=== PATIENT | female | born 1985 | race Caucasian/White ===

== ENCOUNTER 2017-11-19 15:07 | Emergency (ER) | payer OTHER ==
[~2017-11-19] VITALS: Ht 157.5 cm; Wt 83.5 kg
[2017-11-19 15:12] VITALS: Ht 157.5 cm; Wt 83.5 kg
[2017-11-19 16:47] LABS: CARBON DIOXIDE 26.5 mmol/L (21-32); CHLORIDE SERUM 104 mmol/L (98-107); CREATININE SERUM 0.7 mg/dL (0.6-1.0); GFR1 > 60 mL/min; GLUCOSE SERUM 92 mg/dL (74-106); SODIUM SERUM 141 mmol/L (136-145)
[2017-11-19 16:50] LABS: BASOPHIL % 0.5 % (0-2); PLATELET COUNT 334 x10^3mcL (130-400); RED CELL DISTRIBUTION WIDTH 12.7 % (11.5-14.5)
[2017-11-19 17:02] LABS: FREE T4 1.03 ng/dL (0.76-1.46)
[2017-11-19 17:14] VITALS: BP 137/65
== END 2017-11-19 18:50 | disposition home or self-care (01) ==
LOC: ED 15:07
PROVIDERS: Emergency Medicine
DX: J45.909 Unspecified asthma, uncomplicated (principal); E03.9 Hypothyroidism, unspecified
CPT/HCPCS: 36415; 84439; Q0092

== ENCOUNTER 2017-11-29 10:50 | Emergency (ER) | payer OTHER ==
[~2017-11-29] VITALS: Ht 157.5 cm; Wt 82.6 kg
[2017-11-29 10:56] VITALS: Ht 157.5 cm; Wt 82.6 kg
[2017-11-29 12:32] VITALS: BP 98/53
== END 2017-11-29 12:32 | disposition home or self-care (01) ==
LOC: ED 10:50
DX: R06.02 Shortness of breath (principal); K21.9 Gastro-esophageal reflux disease without esophagitis; J45.909 Unspecified asthma, uncomplicated; E03.9 Hypothyroidism, unspecified; Z88.8 Allergy status to other drugs, medicaments and biological substances

== ENCOUNTER 2018-04-28 11:31 | Emergency (ER) | payer OTHER ==
[~2018-04-28] VITALS: Ht 157.5 cm; Wt 74.4 kg
[2018-04-28 11:53] VITALS: Ht 157.5 cm; Wt 74.4 kg
[2018-04-28 13:08] VITALS: BP 114/76
== END 2018-04-28 13:08 | disposition home or self-care (01) ==
LOC: ED 11:31
DX: K21.9 Gastro-esophageal reflux disease without esophagitis (principal); F41.9 Anxiety disorder, unspecified; F41.0 Panic disorder [episodic paroxysmal anxiety]; J45.909 Unspecified asthma, uncomplicated; E03.9 Hypothyroidism, unspecified

== ENCOUNTER 2018-05-02 17:58 | Emergency (ER) | payer OTHER ==
[~2018-05-02] VITALS: Ht 157.5 cm; Wt 71.7 kg
[2018-05-02 18:10] VITALS: Ht 157.5 cm; Wt 71.7 kg
[2018-05-02 18:47] LABS: BASOPHIL % 0.2 % (0-2); PLATELET COUNT 312 x10^3mcL (130-400); RED CELL DISTRIBUTION WIDTH 12.8 % (11.5-14.5)
[2018-05-02 18:54] LABS: CARBON DIOXIDE 25.4 mmol/L (21-32); CHLORIDE SERUM 104 mmol/L (98-107); CREATININE SERUM 0.8 mg/dL (0.6-1.0); GFR1 > 60 mL/min; GLUCOSE SERUM 82 mg/dL (74-106); POTASSIUM SERUM 3.8 mmol/L (3.5-5.1); SODIUM SERUM 141 mmol/L (136-145)
[2018-05-02 18:58] LABS: ALBUMIN 3.8 g/dL (3.4-5.0); ALKALINE PHOSPHATASE 68 U/L (46-116); ALT/SGPT 17 U/L (14-59); AMYLASE 78 U/L (25-115); AST/SGOT 13 U/L (15-37); BILIRUBIN TOTAL 0.4 mg/dL (0.20-1.00); LIPASE 269 IU/L (73-393)
[2018-05-02 19:18] LABS: TOTAL PROTEIN, SERUM 8.3 g/dL (6.4-8.2)
[2018-05-02 19:52] VITALS: BP 117/61
== END 2018-05-02 19:52 | disposition home or self-care (01) ==
LOC: ED 17:58
PROVIDERS: Specialist
DX: K21.9 Gastro-esophageal reflux disease without esophagitis (principal); J45.909 Unspecified asthma, uncomplicated; E03.9 Hypothyroidism, unspecified
CPT/HCPCS: J2765; J3490

== ENCOUNTER 2019-02-27 18:34 | Emergency (ER) | payer OTHER ==
[~2019-02-27] VITALS: Ht 154.9 cm; Wt 83.9 kg
[2019-02-27 19:27] VITALS: Ht 154.9 cm; Wt 83.9 kg
[2019-02-27 20:03] LABS: BASOPHIL % 0.4 % (0-2); PLATELET COUNT 338 x10^3mcL (130-400); RED CELL DISTRIBUTION WIDTH 13.7 % (11.5-14.5)
[2019-02-27 21:42] VITALS: BP 119/72
== END 2019-02-27 21:42 | disposition home or self-care (01) ==
LOC: ED 18:34
PROVIDERS: Emergency Medicine
DX: O20.0 Threatened abortion (principal); J45.909 Unspecified asthma, uncomplicated; F41.9 Anxiety disorder, unspecified; E03.9 Hypothyroidism, unspecified; K21.9 Gastro-esophageal reflux disease without esophagitis
CPT/HCPCS: 36415